=== PATIENT | male | born 1965 | race Caucasian/White ===

== ENCOUNTER 2020-06-24 23:39 | Emergency (ER) | payer MEDICAID ==
[~2020-06-24] VITALS: Ht 167.6 cm; Wt 64.4 kg
[~2020-06-24 23:39] MED LIST: GLIP5TAB13 PO; GLUC-805 FS; HUMSLIDE SUBQ; LACT1.4C PO; LEVO750T2 PO; METF-1022 PO; METR500T1 PO
[2020-06-24 23:44] VITALS: BP 123/76
--- NOTE | 2020-06-24 23:48 | NUR ---
ambulated to bed 07 with steady gait.
--- NOTE | 2020-06-24 23:57 | NUR ---
55 Y/O male c/o suture reopened. located on bottom of buttock to scrotum coming off s/p surgery this past friday. denies pain. accu check 249. no bleeding noted. pmhx: nguyễn maya
--- NOTE | 2020-06-24 23:58 | NUR ---
ERMD AT BEDSIDE EVALUATING PT
--- NOTE | 2020-06-25 | NUR ---
PT WOUND COVERED IN GAUZE AND TAPED IN PLACE.
[2020-06-25 00:04] VITALS: BP 123/76
--- NOTE | 2020-06-25 00:04 | NUR ---
Patient discharged with v/s stable. Written and verbal after care instructions given and explained. Patient alert, oriented and verbalized understanding of instructions. Ambulatory with steady gait. All questions addressed prior to discharge. ID band removed. Patient advised to follow up with PMD. Opportunity to ask questions provided and answered.
== END 2020-06-25 00:04 | disposition home or self-care (01) ==
LOC: MED 23:39
DX: L02.215 Cutaneous abscess of perineum (principal); E11.9 Type 2 diabetes mellitus without complications; I10 Essential (primary) hypertension; Z79.899 Other long term (current) drug therapy; Z48.00 Encounter for change or removal of nonsurgical wound dressing
CPT/HCPCS: 82948; 99281; 99283

== ENCOUNTER 2022-06-18 14:49 | Emergency (ER) | payer SELFPAY ==
[~2022-06-18] VITALS: Ht 165.1 cm; Wt 69.0 kg
[~2022-06-18 14:49] MED LIST changes: -METF-1022 PO; +METF-1253 PO
[2022-06-18 15:07] VITALS: BP 129/69
--- NOTE | 2022-06-18 15:15 | NUR ---
PT AMB TO BED 6.
--- NOTE | 2022-06-18 15:17 | NUR ---
PT AMBULATED TO ER BED 6
--- NOTE | 2022-06-18 15:34 | NUR ---
DR WORKMAN AT BEDSIDE EVALUATING PT
--- NOTE | 2022-06-18 15:40 | NUR ---
57YO MALE PT C/O NUMBING WINSOME IN LOWER EXTREMETIES X2DAYS. PT REPORTS SUDDEN ONSET , DENIES LOSS OF SENSATION OR RECENT INJURY. PT PRESENTS WITH MILD +1 SWELLING IN FEET.DENIES CHEST PAIN, SOB OR N/V/D . PT AAOX4, AMBULATORY W/ STEADY GAIT. NO VISIBLE DISTRESS. RESPIRATIONS EVEN AND UNLABORED. ICELANDIC SPEAKING. HX: DIABETES NKA
[2022-06-18] MEDS ORDERED: IBUP-2213 PO (15:52)
--- NOTE | 2022-06-18 16:02 | NUR ---
Patient discharged with v/s stable. Written and verbal after care instructions FOR DIABETIC NEUROPATHY AND PERIPHERAL EDEMA given and explained. Patient alert, oriented and verbalized understanding of instructions. Ambulatory with steady gait. All questions addressed prior to discharge. ID band removed. Patient advised to follow up with PMD. Rx of IBUPROFEN given. Opportunity to ask questions provided and answered.
--- NOTE | 2022-06-18 16:15 | NUR ---
The patient's care was reviewed and supervised by Doreen Ponce RN.
== END 2022-06-18 16:02 | disposition home or self-care (01) ==
LOC: MED 14:49
DX: E11.40 Type 2 diabetes mellitus with diabetic neuropathy, unspecified (principal); I10 Essential (primary) hypertension; Z79.4 Long term (current) use of insulin; Z79.899 Other long term (current) drug therapy; Z79.2 Long term (current) use of antibiotics
CPT/HCPCS: 99282

== ENCOUNTER 2022-11-19 10:27 | Emergency (ER) | payer SELFPAY ==
[~2022-11-19] VITALS: Ht 165.1 cm; Wt 68.0 kg
[~2022-11-19 10:27] MED LIST changes: +IBUP-2213 PO
[2022-11-19 10:33] VITALS: BP 127/74
--- NOTE | 2022-11-19 10:39 | NUR ---
KLAUDIA, SON IN LAW,
--- NOTE | 2022-11-19 10:47 | NUR ---
PT ACTIVELY VOMITING AT BEDSIDE
[2022-11-19] MEDS ORDERED: NACL 0.9% 2,000 ML IV ONE (10:50)
[2022-11-19] MEDS ORDERED: ONDANSETRON 4 MG/2 ML VIAL IVP ONE (10:50)
[2022-11-19] MEDS ORDERED: LORazepam 2 MG/ML VIAL IVP ONE (10:50)
--- NOTE | 2022-11-19 11:27 | NUR ---
57/M PRESENTS TO ED WITH C/O ABDOMINAL PAIN AND N/V SINCE YESTERDAY. PATIENT REPORTS HE HAD MALTESE FOOD YESTERDAY AND SYMPTOMS BEGAN SHORTLY AFTER. PATIENT ADMITS TO ALSO CONSUMING TWO BEERS LAST NIGHT, DENIES TAKING MEDICATIONS FOR SYMPTOMS. DENIES DIARRHEA, CONSTIPATION OR URINARY SYMPTOMS. EPIGASTRIC AND RUQ PAIN TENDER TO TOUCH.
[2022-11-19 11:42] LABS: BASOPHILS % (AUTO) 0.3 % (0.0-2.0); EOSINOPHILS % (AUTO) 0.1 % (0.0-4.0); HEMATOCRIT 44.4 % (36-52); HEMOGLOBIN 15.1 g/dL (12.0-18.0); LYMPHOCYTES # (AUTO) 1.3 K/uL (2.0-11.5); LYMPHOCYTES % (AUTO) 12.6 % (20.5-51.1); MEAN CORPUSCULAR HEMOGLOBIN 28 pg (27-31); MEAN CORPUSCULAR HGB CONC 34 g/dL (33-37); MEAN CORPUSCULAR VOLUME 83.2 fL (80-94); MONOCYTES # (AUTO) 0.5 K/uL (0.8-1.0); MONOCYTES % (AUTO) 5.2 % (1.7-9.3); NEUTROPHILS # (AUTO) 8.5 K/uL (1.8-7.7); NEUTROPHILS % (AUTO) 81.8 % (42.2-75.2); PLATELET COUNT (AUTO) 333 K/uL (140-450); RED BLOOD CELL COUNT(AUTO) 5.34 MIL/uL (4.20-6.10); WHITE BLOOD COUNT (AUTO) 10.4 K/uL (4.8-10.8)
[2022-11-19 12:03] LABS: ALBUMIN 4.1 g/dL (3.4-5.0); ANION GAP 12.8 (8-16); ASPARTATE AMINOTRANSFERASE 34 U/L (15-37); CARBON DIOXIDE 32.4 mmol/L (21-32); CHLORIDE 93 mmol/L (98-107); GFR ARICAN-AMERICAN 99 mL/min (>90); LIPASE 107 U/L (73-393); POTASSIUM 4.2 mmol/L (3.5-5.1); SODIUM SERUM 134 mmol/L (136-145); TOTAL BILIRUBIN 0.8 mg/dL (0.0-1.0); UREA NITROGEN, BLOOD 21 mg/dL (7-18)
[2022-11-19 12:11] LABS: GLUCOSE 529 mg/dL (74-106)
--- NOTE | 2022-11-19 12:15 | NUR ---
PATIENT PROVIDED WITH URINAL STATES UNABLE TO PROVIDE URINE AT THIS TIME. DR. KYLE MADE AWARE
[2022-11-19] MEDS ORDERED: DICYCLOMINE HCL LIQUID 20 MG, ALUMINUM HYD/MAG/SIMETHICONE 30 ML, LIDOCAINE VISCOUS 2% ... PO ONE ×3 (12:55)
[2022-11-19] MEDS ORDERED: ALUMINUM HYD/MAG/SIMETHICONE 30 ML UDC ONE (13:02)
[2022-11-19] MEDS ORDERED: DICYCLOMINE HCL LIQUID 10 MG/5 ML UDC ONE (13:02)
--- NOTE | 2022-11-19 13:30 | NUR ---
PATIENT UNABLE TO PROVIDE URINE DR. KYLE AWARE
[2022-11-19] MEDS ORDERED: MORPHINE SULFATE 2 MG/ML SYR IVP STA (13:31)
[2022-11-19] MEDS ORDERED: FAMOTIDINE 20 MG/2 ML VIAL IVP ONE (13:35)
[2022-11-19] MEDS ORDERED: OMEP20EC11 PO (13:53)
[2022-11-19] MEDS ORDERED: ONDA-188 PO (13:53)
[2022-11-19] MEDS ORDERED: MAG-27 PO (13:53)
[2022-11-19] MEDS ORDERED: METF-1243 PO (13:55)
[2022-11-19 14:19] VITALS: BP 143/88
--- NOTE | 2022-11-19 14:39 | NUR ---
Patient discharged with v/s stable. Written and verbal after care instructions given and explained. Patient alert, oriented and verbalized understanding of instructions. Ambulatory with steady gait. All questions addressed prior to discharge. ID band removed. Patient advised to follow up with PMD. Rx of OMEPRAZOLE, MYLANTA AND ZOFRAN ODT given. Patient educated on indication of medication including possible reaction and side effects. Opportunity to ask questions provided and answered.
== END 2022-11-19 14:39 | disposition home or self-care (01) ==
LOC: MED 10:27
DX: E11.65 Type 2 diabetes mellitus with hyperglycemia (principal); I10 Essential (primary) hypertension; F17.200 Nicotine dependence, unspecified, uncomplicated; Z79.4 Long term (current) use of insulin; Z79.899 Other long term (current) drug therapy; Z72.89 Other problems related to lifestyle
CPT/HCPCS: 36415; 80053; 83690; 85025; 96361; 96374; 96375; 99285; G0482; J2060; J2270; J2405; J3490; J7030

== ENCOUNTER 2023-06-12 17:30 | Emergency (ER) | payer OTHER ==
[~2023-06-12] VITALS: Ht 167.6 cm; Wt 65.5 kg
[~2023-06-12 17:30] MED LIST changes: +MAG-27 PO; +METF-1243 PO; +OMEP20EC11 PO; +ONDA-188 PO
[2023-06-12 17:47] VITALS: BP 109/68; PULSE 104; RESP 20; TEMP 97.9; O2SAT 100
[2023-06-12] MEDS: NACL 0.9% 1,000 ML IV ONE (18:55)
[2023-06-12 19:20] LABS: BASOPHILS % (AUTO) 0.4 % (0.0-2.0); EOSINOPHILS % (AUTO) 0.5 % (0.0-4.0); HEMATOCRIT 42.5 % (36-52); LYMPHOCYTES # (AUTO) 1.4 K/uL (2.0-11.5); LYMPHOCYTES % (AUTO) 18.5 % (20.5-51.1); MEAN CORPUSCULAR HEMOGLOBIN 29 pg (27-31); MEAN CORPUSCULAR HGB CONC 33 g/dL (33-37); MEAN CORPUSCULAR VOLUME 88.7 fL (80-94); MONOCYTES # (AUTO) 0.6 K/uL (0.8-1.0); MONOCYTES % (AUTO) 8.5 % (1.7-9.3); NEUTROPHILS # (AUTO) 5.4 K/uL (1.8-7.7); NEUTROPHILS % (AUTO) 72.1 % (42.2-75.2); PLATELET COUNT (AUTO) 256 K/uL (140-450); RED CELL DISTRIBUTION WIDTH 13.4 % (11.6-13.7); WHITE BLOOD COUNT (AUTO) 7.5 K/uL (4.8-10.8)
[2023-06-12 19:42] LABS: ALANINE AMINOTRANSFERASE 23 U/L (12-78); ALBUMIN 3.1 g/dL (3.4-5.0); ALKALINE PHOSPHATASE 109 U/L (50-136); ANION GAP 11.5 (8-16); ASPARTATE AMINOTRANSFERASE 19 U/L (15-37); CALCIUM 8.2 mg/dL (8.5-10.1); CARBON DIOXIDE 26.7 mmol/L (21-32); CHLORIDE 97 mmol/L (98-107); CREATININE 1.4 mg/dL (0.6-1.3); GFR ARICAN-AMERICAN 67 mL/min (>90); GFR NON ARICAN-AMERICAN 56 mL/min (>90); POTASSIUM 4.2 mmol/L (3.5-5.1); SODIUM SERUM 131 mmol/L (136-145); TOTAL BILIRUBIN 0.4 mg/dL (0.0-1.0); TOTAL PROTEIN, SERUM 6.9 g/dL (6.4-8.2); UREA NITROGEN, BLOOD 20 mg/dL (7-18)
[2023-06-12 21:07] LABS: GLUCOSE 589 mg/dL (74-106)
[2023-06-12 21:50] VITALS: BP 109/68; PULSE 104; RESP 20; TEMP 97.9; O2SAT 100
== END 2023-06-12 21:50 | disposition home or self-care (01) ==
LOC: MED 17:30
DX: E11.65 Type 2 diabetes mellitus with hyperglycemia (principal); E86.0 Dehydration; N17.9 Acute kidney failure, unspecified; I10 Essential (primary) hypertension; Z79.4 Long term (current) use of insulin; Z79.899 Other long term (current) drug therapy
CPT/HCPCS: 36415; 71045; 80053; 84484; 85025; 93005; 96360; 99285

== ENCOUNTER 2024-05-05 17:29 | Emergency (ER) | payer OTHER ==
[~2024-05-05] VITALS: Ht 167.6 cm; Wt 63.5 kg
[~2024-05-05 17:29] MED LIST changes: -GLIP5TAB13 PO; +GLIP5TAB22 PO
[2024-05-05 17:33] VITALS: BP 175/87; PULSE 93; RESP 17; TEMP 98.3; O2SAT 98
[2024-05-05 18:21] VITALS: TEMP 98.3
[2024-05-05 18:36] LABS: BASOPHILS % (AUTO) 0.3 % (0.0-2.0); EOSINOPHILS # (AUTO) 0.1 K/uL (0-0.4); EOSINOPHILS % (AUTO) 1.2 % (0.0-4.0); HEMATOCRIT 39.3 % (36-52); LYMPHOCYTES # (AUTO) 1.6 K/uL (2.0-11.5); LYMPHOCYTES % (AUTO) 25.5 % (20.5-51.1); MEAN CORPUSCULAR HEMOGLOBIN 28 pg (27-31); MEAN CORPUSCULAR HGB CONC 33 g/dL (33-37); MEAN CORPUSCULAR VOLUME 85.6 fL (80-94); MONOCYTES # (AUTO) 0.6 K/uL (0.8-1.0); MONOCYTES % (AUTO) 9.1 % (1.7-9.3); NEUTROPHILS % (AUTO) 63.9 % (42.2-75.2); PLATELET COUNT (AUTO) 255 K/uL (140-450); RED BLOOD CELL COUNT(AUTO) 4.59 MIL/uL (4.20-6.10); RED CELL DISTRIBUTION WIDTH 13.1 % (11.6-13.7); WHITE BLOOD COUNT (AUTO) 6.2 K/uL (4.8-10.8)
[2024-05-05 18:46] LABS: ANION GAP 16.7 (8-16); CALCIUM 8.6 mg/dL (8.5-10.1); CARBON DIOXIDE 22.1 mmol/L (21-32); CREATININE 1.3 mg/dL (0.6-1.3); POTASSIUM 3.8 mmol/L (3.5-5.1)
[2024-05-05 19:34] VITALS: BP 171/98; PULSE 86; RESP 14; O2SAT 98
[2024-05-05] MEDS ORDERED: ACET-10509 PO (19:39)
[2024-05-05] MEDS: KETOROLAC 30 MG/ML VIAL IVP ONE (19:39)
[2024-05-05] MEDS: NACL 0.9% 1,000 ML IV ONE (19:39)
== END 2024-05-05 21:48 | disposition home or self-care (01) ==
LOC: MED 17:29
DX: S20.212A Contusion of left front wall of thorax, initial encounter (principal); E72.51 Non-ketotic hyperglycinemia; E11.9 Type 2 diabetes mellitus without complications; I10 Essential (primary) hypertension; Z79.84 Long term (current) use of oral hypoglycemic drugs; Z79.1 Long term (current) use of non-steroidal anti-inflammatories (NSAID); Z79.899 Other long term (current) drug therapy; Y04.0XXA Assault by unarmed brawl or fight, initial encounter; Y93.89 Activity, other specified; Y92.89 Other specified places as the place of occurrence of the external cause; Y99.8 Other external cause status
CPT/HCPCS: 36415; 71045; 80048; 84484; 85025; 93005; 96374; 99285; J1885; J7030